=== PATIENT | male | born 1960 | race Caucasian/White ===

== ENCOUNTER 2017-01-02 23:26 | Emergency (ER) | payer SELFPAY ==
[~2017-01-02] VITALS: Ht 198.1 cm; Wt 118.2 kg
[2017-01-03] MEDS ORDERED: MORPHINE SULFATE 4 MG/ML SYRINGE IM ONE (03:30)
[2017-01-03] MEDS ORDERED: ONDANSETRON HCL 4 MG/2 ML VIAL IM ONE (03:30)
[2017-01-03 04:43] VITALS: BP 136/76
== END 2017-01-03 04:46 | disposition home or self-care (01) ==
LOC: EMS 23:28
DX: S39.012A Strain of muscle, fascia and tendon of lower back, initial encounter (principal); I10 Essential (primary) hypertension; F17.210 Nicotine dependence, cigarettes, uncomplicated; W17.2XXA Fall into hole, initial encounter; Y93.89 Activity, other specified; Y92.89 Other specified places as the place of occurrence of the external cause; Y99.8 Other external cause status
CPT/HCPCS: 96372; 99284; J2270; J2405

== ENCOUNTER 2017-03-25 11:44 | Emergency (ER) | payer OTHER ==
[~2017-03-25] VITALS: Ht 198.1 cm; Wt 118.2 kg
[2017-03-25 12:30] VITALS: BP 150/94
[2017-03-25] MEDS ORDERED: KETOROLAC TROMETHAMINE 60 MG/2 ML VIAL IM ONE (13:15)
== END 2017-03-25 13:26 | disposition home or self-care (01) ==
LOC: EMS 11:45
DX: S83.91XA Sprain of unspecified site of right knee, initial encounter (principal); I10 Essential (primary) hypertension; F17.210 Nicotine dependence, cigarettes, uncomplicated; X50.0XXA Overexertion from strenuous movement or load, initial encounter; Y93.89 Activity, other specified; Y92.89 Other specified places as the place of occurrence of the external cause; Y99.8 Other external cause status
CPT/HCPCS: 96372; 99283; J1885